=== PATIENT | male | born 1950 | race Caucasian/White ===

== ENCOUNTER 2019-11-18 15:00 | Outpatient (CLI) | payer MEDICARE, OTHER, SELFPAY ==
--- NOTE | 2019-11-18 15:00 | US_ITS ---
WS: [id number] ULTRASOUND THYROID TECHNIQUE: Ultrasound of the thyroid. CLINICAL INFORMATION: enlarged thyroid COMPARISON: None. FINDINGS: Thyroid: Right and left thyroid lobes are normal in size and echotexture. No thyroid nodules are pres ent. Right thyroid lobe: 3.9 cm x 1.3 cm x 1.5 cm Left thyroid lobe: 2.5 cm x 1.4 cm x 1.5 cm. Isthmus: 0.2 mm. Cervical lymphadenopathy: None. US/US thyroid [id number] IMPRESSION: Normal thyroid ultrasound examination.
== END 2019-11-18 15:01 | disposition home or self-care (01) ==
LOC: US 15:02
PROVIDERS: PCP Nurse Practitioner Family; Visit Provider Nurse Practitioner Family
DX: E04.9 Nontoxic goiter, unspecified (principal)
CPT/HCPCS: 76536

== ENCOUNTER → 2019-12-07 11:49 | Outpatient (BNVA) | payer MEDICARE, OTHER, SELFPAY | PROVIDERS: PCP Nurse Practitioner Family; Visit Provider Nurse Practitioner Family | DX: R53.83 Other fatigue (principal); R63.4 Abnormal weight loss | CPT/HCPCS: 80053; 84443; 85025 ==

== ENCOUNTER → 2019-12-18 09:22 | Outpatient (BNVA) | payer MEDICARE, OTHER, SELFPAY | PROVIDERS: PCP Nurse Practitioner Family; Visit Provider Nurse Practitioner Family | DX: E87.6 Hypokalemia (principal) | CPT/HCPCS: 80048 ==

== ENCOUNTER 2019-12-29 09:59 | Outpatient (CLI) | payer MEDICARE, OTHER, SELFPAY ==
--- NOTE | 2019-12-29 10:23 | XR_ITS ---
WS: [id number] Orbits 2 views. HISTORY: Evaluate for metal in orbits prior to MRI. No metallic foreign bodies project over the orbits or globes. XR/[place] [id number] IMPRESSION: Proceed with MRI, no foreign body.
--- NOTE | 2019-12-29 11:00 | MR_ITS ---
WS: [id number] MRI NECK with and without CONTRAST. COMPARISON: None Multiplanar, multisequence imaging is performed with and without contrast. [place] and lingular tonsils are normal size and enhancement. No masses are identified. Parapharynge al soft tissue fat is normal. Normal appearance of the epiglottis and uvula. No adenopathy. Pharyngea l mucosa is normal. Visualized submandibular and parotid glands are negative for masses or abnormal e nhancement. Small mucous retention cyst in the floor of the LEFT maxillary sinus. Disc bulging and osteophytes ca using mild narrowing of the cervical canal from C3-4 through C5-6. MR/MR orbit face neck wo/w* [id number] IMPRESSION: No neck mass or adenopathy.
== END 2019-12-29 10:00 | disposition home or self-care (01) ==
LOC: RADWPI 10:06
PROVIDERS: PCP Nurse Practitioner Family; Visit Provider Specialist
DX: D10.4 Benign neoplasm of tonsil (principal)
CPT/HCPCS: 70030; 70543; A9579